=== PATIENT | male | born 1960 | race Caucasian/White ===

== ENCOUNTER → 2017-07-18 | Day surgery (SDC) | payer BC ==
[~2017-07-18] VITALS: Ht 177.8 cm; Wt 90.9 kg
[~2017-07-18] MED LIST: CHLORHEXIDINE GLUCONATE 2 % 1 PACK (2 CLOTHS) TOPICAL PRN; ENAL10TA PO; FLEC1TAB9 PO; GABA300C5 PO; INSULIN HUMAN REGULAR 1,000 UNITS/10 ML VIAL SQ PRN; LACTATED RINGER'S 1000 ML IV PRN; METOPROLOL TARTRATE 25 MG TAB PO PRN; OFLOXACIN 0.3% OPTH SOLN 5 ML BTL ONE; ONDANSETRON HCL 4 MG/2 ML VIAL IV PUSH ONE; POVIDONE IODINE 5% (ANTISEPSIS KIT) 4 APPLICATIONS EACH NARE PRN; PROPOFOL 200 MG/20 ML AMP IV ONE; SODIUM CHLORID 0.9% 500 ML IV PRN
--- NOTE | 2017-07-18 07:53 | MH ---
cc: STEPHANIE PEREZ M.D. DATE OF ADMISSION: 07/18/2017 HISTORY OF PRESENT ILLNESS He is a 57-year-old gentleman with chronic otitis media, left side for left myringotomy and T-tube placement. PAST MEDICAL HISTORY Unremarkable. PAST SURGICAL HISTORY Unremarkable. REVIEW OF SYSTEMS/FAMILY HISTORY AND SOCIAL HISTORY Unremarkable. PHYSICAL EXAMINATION GENERAL: Well-appearing patient, no acute distress noted. HEENT: Exam reveals thickened drum with fluid behind drum on the left side. Nose WNL. Oral cavity clear. NECK: Soft, supple, no masses noted. LUNGS: Clear. HEART: Regular rate and rhythm. ABDOMEN: Soft, nontender. EXTREMITIES: Without cyanosis, clubbing or edema. NEUROLOGICALLY: Alert, oriented, nonfocal neurologic exam. IMPRESSION A patient with chronic otitis for tube placed. Instructed as to the method of surgery and possible complications including anesthetic complications, cardiac difficulty, pulmonary difficulty, stroke, or even . Surgical complications, conductive or sensorineural hearing loss. The patient appeared to agree, accept and understand the above-mentioned risks and benefits. In addition, no guarantees or warranties regarding outcome were given. Will therefore proceed with surgery. MD JAIME Lagunas/AURELIA /4:28 PM /7:48 AM
[2017-07-18 10:15] VITALS: BP 106/66; PULSE 65; RESP 18; TEMP 97.8; O2SAT 100
--- NOTE | 2017-07-21 20:31 | MP ---
cc: STEPHANIE PEREZ DATE OF SURGERY: 07/18/2017. PREOPERATIVE DIAGNOSIS: Chronic otitis media, left side. PROCEDURE: Left myringotomy and T-tube placement. SURGEON: Stephanie Perez MD ANESTHESIA: General anesthesia ESTIMATED BLOOD LOSS: Minimal. COMPLICATIONS: No complications. DESCRIPTION OF THE PROCEDURE IN DETAIL: Prepped, draped usual fashion. Anterior-inferior radial myringotomy incision made. Fluid suctioned from middle ear cavity under microscopic visualization. Tympanostomy T-tube placed in good position under microscopic visualization. Oflox drops placed. The patient tolerated the procedure well. Stephanie Perez MD [facility]/Cyn /7:50 AM /8:26 PM
== END | disposition home or self-care (01) ==
LOC: HSDC 06:35
PROVIDERS: ATTEND Specialist
DX: H66.92 Otitis media, unspecified, left ear (principal)
CPT/HCPCS: 00126; 69436; J2405; J3010; J7120